=== PATIENT | female | born 1975 | race Caucasian/White ===

== ENCOUNTER 2018-04-30 16:00 | Outpatient (CLI) | payer BC | END 2018-04-30 16:01 | disposition home or self-care (01) | LOC: BICMAMMO 16:00 | PROVIDERS: ATTEND Obstetrics & Gynecology | DX: Z12.31 Encounter for screening mammogram for malignant neoplasm of breast (principal); Z80.3 Family history of malignant neoplasm of breast | CPT/HCPCS: 77063; 77067 ==

== ENCOUNTER 2018-05-31 16:00 | Outpatient (CLI) | payer BC | END 2018-05-31 16:01 | disposition home or self-care (01) | LOC: SLEEPLAB 16:00 | PROVIDERS: ATTEND Family Medicine | DX: G47.33 Obstructive sleep apnea (adult) (pediatric) (principal); R53.83 Other fatigue; R06.83 Snoring; Z68.25 Body mass index [BMI] 25.0-25.9, adult | CPT/HCPCS: 95806 ==

== ENCOUNTER 2020-07-24 08:44 | Outpatient (CLI) | payer BC ==
--- NOTE | 2020-07-24 09:34 | MMO ---
Bilateral MAMMO Bilat Diag [facility]. CLINICAL HISTORY: Patient is 45 years old and is seen for diagnostic exam and pain in the outer region of the left breast. The patient has the following family history of breast cancer: mother. The patient has no personal history of cancer. The patient has a history of right Lumpectomy - benign - cyst removal. VIEWS: The views performed were: bilateral craniocaudal with tomosynthesis; bilateral mediolateral oblique with tomosynthesis; and bilateral mediolateral with tomosynthesis. FILMS COMPARED: The present examination has been compared to prior imaging studies performed at [facility] on 04/20/2016, 04/28/2017, 04/30/2018 and 07/24/2020. This study has been interpreted with the assistance of computer-aided detection. MAMMOGRAM FINDINGS: There are scattered fibroglandular densities. Post op changes right breast stable. No abnormality in left breast. Ultrasound outer left breast negative. There are no suspicious masses, suspicious calcifications, or new areas of architectural distortion. IMPRESSION: THERE IS NO MAMMOGRAPHIC EVIDENCE OF MALIGNANCY. A ROUTINE FOLLOW-UP MAMMOGRAM IN 1 YEAR IS RECOMMENDED. THE RESULTS OF THIS EXAM WERE SENT TO THE PATIENT. ACR BI-RADS Category 2 - Benign finding MAMMOGRAPHY NOTE: 1. A negative mammogram report should not delay a biopsy if a dominant of clinically suspicious mass is present. 2. Approximately 10% to 15% of breast cancers are not detected by mammography. 3. Adenosis and dense breasts may obscure an underlying neoplasm. Reported by: MELLO CUNNINGHAM MD Electonically Signed: [id number]
--- NOTE | 2020-07-24 10:33 | ULT ---
ULTRASOUND LEFT BREAST: INDICATION: Pain in the left axilla and outer left breast. No mammographic abnormality identified. FINDINGS: Rn Forensic images of the left axilla and outer left breast are presented. No sonographic abnorma lity identified. IMPRESSION: Left breast ultrasound findings are BIRADS 1: Negative Routine annual screening mammography (for women over age 40), negative. POS: OFF
== END 2020-07-24 08:45 | disposition home or self-care (01) ==
LOC: BICMAMMO 08:44
PROVIDERS: ATTEND Physician Assistant
DX: N64.4 Mastodynia (principal)
CPT/HCPCS: 77066; G0279

== ENCOUNTER 2021-07-07 07:30 | Outpatient (CLI) | payer BC | END 2021-07-07 07:31 | disposition home or self-care (01) | LOC: ULT 07:30 | PROVIDERS: ATTEND Internal Medicine Gastroenterology | DX: K80.20 Calculus of gallbladder without cholecystitis without obstruction (principal); K52.9 Noninfective gastroenteritis and colitis, unspecified; K90.41 Non-celiac gluten sensitivity; K52.832 Lymphocytic colitis; R10.32 Left lower quadrant pain | CPT/HCPCS: 76705 ==

== ENCOUNTER 2022-08-22 08:39 | Outpatient (CLI) | payer BC | END 2022-08-22 08:40 | disposition home or self-care (01) | LOC: NM 08:39 | PROVIDERS: ATTEND Physician Assistant Medical | DX: R10.11 Right upper quadrant pain (principal); R11.0 Nausea | CPT/HCPCS: 78227; A9537 ==

== ENCOUNTER 2022-10-31 07:46 | Outpatient (CLI) | payer BC | END 2022-10-31 07:47 | disposition home or self-care (01) | LOC: BICMRI 07:46 | PROVIDERS: ATTEND Obstetrics & Gynecology | DX: R92.8 Other abnormal and inconclusive findings on diagnostic imaging of breast (principal) | CPT/HCPCS: A9577; C8908 ==

== ENCOUNTER 2025-05-30 15:11 | Outpatient (CLI) | payer BC | END 2025-05-30 15:12 | disposition home or self-care (01) | LOC: SCSMRI 15:11 | PROVIDERS: ATTEND Family Medicine Sports Medicine | DX: M54.50 Low back pain, unspecified (principal); M48.061 Spinal stenosis, lumbar region without neurogenic claudication; M48.07 Spinal stenosis, lumbosacral region | CPT/HCPCS: 72148 ==